=== PATIENT | male | born 1990 | race African-American/Black ===

== ENCOUNTER 2017-05-21 04:46 | Emergency (ER) | payer OTHER ==
[~2017-05-21] VITALS: Ht 195.6 cm; Wt 93.0 kg
[2017-05-21 05:52] VITALS: BP 117/63
[2017-05-21 06:19] VITALS: BP 117/63
--- NOTE | 2017-05-21 22:14 | Emergency Room Report ---
History of Present Illness General Chief Complaint: Medical Clearance Source: Patient, EMS Present Illness HPI 27-year-old male presents ED for nursing home clearance. Patient is in police custody. Patient was found on street behaving erratically. EMS states they know the patient well and he has a psychiatric history. Patient takes risperdol. Patient states he is not taking his medication in some time. Denies any suicidal homicidal ideation. Denies hearing voices. Denies alcohol or drug use. No other aggravating or leading factors. Denies any other associated symptoms Allergies: Coded Allergies: No Known Allergies (Unverified , 05/21/17) Patient History Past Medical History: psych hx Past Surgical History: none Pertinent Family History: none Social History: Denies: smoking, alcohol use, drug use Immunizations: UTD Reviewed Nursing Documentation: PMH: Agreed, PSxH: Agreed Nursing Documentation-PMH Past Medical History: No History, Except For Hx Asthma: Yes History Of Psychiatric Problem: Yes - bipolar, schizo Review of Systems All Other Systems: negative except mentioned in HPI Physical Exam Vital Signs Date Time Temp Pulse Resp B/P (MAP) Pulse Ox O2 Delivery O2 Flow Rate FiO2 05/21/17 04:46 97.7 120 18 108/60 98 Room Air Sp02 EP Interpretation: reviewed, normal General Appearance: no apparent distress, alert, GCS 15, non-toxic Head: normocephalic Eyes: bilateral eye normal inspection, bilateral eye PERRL ENT: normal ENT inspection Neck: normal inspection Respiratory: chest non-tender, lungs clear, normal breath sounds, speaking full sentences Cardiovascular #1: regular rate, rhythm, no edema Gastrointestinal: normal bowel sounds, non tender, soft, non-distended, no guarding, no rebound Rectal: deferred Genitourinary: no CVA tenderness Musculoskeletal: back normal Neurologic: alert, other - anxious Psychiatric: no suicidal/homicidal ideation, anxious Skin: normal inspection Lymphatic: normal inspection Medical Decision Making Diagnostic Impression: Primary Impression: Medical clearance for incarceration Additional Impression: Schizophrenia Qualified Codes: F20.9 - Schizophrenia, unspecified ER Course Hospital Course 27-year-old male presents to ED for and nursing home clearance. behaving erratically. + psychiatric history Clinical course Patient placed on stretcher. Handcuffs. After initial history, physical exam reveals a young male in no acute distress. Patient was maintained poor eye contact and speaking erratically. No signs of suicidal or homicidal ideation. patient given risperdol; on reassessment patient behaving more appropriately, calm, relaxed. Patient can be safely discharged into police custody Diagnosis - medical clearance for incarceration, schizophrenia stable and discharged into police custody Last Vital Signs Date Time Temp Pulse Resp B/P (MAP) Pulse Ox O2 Delivery O2 Flow Rate FiO2 05/21/17 06:19 97.7 84 18 117/63 97 Room Air Status: improved Disposition: D/C TO LAW ENFORCEMENT IN CUST Condition: Stable Departure Forms: Senior Care Clearance Patient Instructions: Schizophrenia ABA MENDOSA M.D. May 21, 2017 22:14
== END 2017-05-21 06:19 ==
LOC: EDBD 04:46 → EMR 05:10
DX: Z76.89 Persons encountering health services in other specified circumstances (principal); F20.9 Schizophrenia, unspecified; F31.9 Bipolar disorder, unspecified
CPT/HCPCS: 99283